=== PATIENT | female | born 1980 | race Hispanic/Latino ===

== ENCOUNTER 2017-03-30 13:24 | Emergency (ER) | payer OTHER ==
[2017-03-30 13:38] VITALS: BP 132/74; PULSE 88; RESP 20; TEMP 98.6; O2SAT 98
--- NOTE | 2017-03-30 13:43 | ED PDOC ---
Lower Extremity Pain/Injury Time Seen by Provider: 03/30/17 13:38 Chief Complaint (Nursing): Lower Extremity Problem/Injury Chief Complaint (Provider): left foot pain History Per: Patient History/Exam Limitations: no limitations Onset/Duration Of Symptoms: Days (injury- 4 day ago) - Ankle/Foot Description Of Injury: Struck Against Object (edge of bed) Currently Unable To: Bear Weight Alleviating Factor(s): Ice Therapy, OTC Pain Medication Feet: 1 - bruising, pain swelling. - Risk Factors DVT Risk Factors: Pos: None Past Medical History Reviewed: Historical Data, Nursing Documentation, Vital Signs Vital Signs: Last Vital Signs Temp 98.6 F 03/30/17 13:33 Pulse 88 03/30/17 13:33 Resp 20 03/30/17 13:33 BP 132/74 03/30/17 13:33 Pulse Ox 98 03/30/17 13:33 - Medical History PMH: No Chronic Diseases - Family History Family History: States: No Known Family Hx - Home Medications Home Medications: Ambulatory Orders Medication Instructions Recorded Cephalexin [cephalexin] 500 mg PO BID #20 cap 03/30/17 Clindamycin [Cleocin] 300 mg PO TID #30 cap 03/30/17 Desoximetasone 0.25% [Topicort 0.25 gm TP DAILY #1 tube 03/30/17 0.25%] - Allergies Allergies/Adverse Reactions: Allergies Allergy/AdvReac Type Severity Reaction Status Date / Time No Known Allergies Allergy Verified 03/30/17 13:32 Wells Criteria for PE - Wells Criteria for Pulmonary Embolism Clinical Signs and Symptoms of DVT: No P.E is #1 Diagnosis, or Equally Likely: No Heart Rate >100: No Immobilization at least 3 days;Surgery previous 4 weeks: No Previous, objectively diagnosed PE or DVT: No Hemoptysis: No Malignancy w/treatment within 6 months, or palliative: No Total Score: 0 Review of Systems ROS Statement: Except As Marked, All Systems Reviewed And Found Negative Musculoskeletal: Positive for: Foot Pain Physical Exam - Reviewed Nursing Documentation Reviewed: Yes Vital Signs Reviewed: Yes - Physical Exam Appears: Positive for: Non-toxic, No Acute Distress Skin: Positive for: Normal Color, Warm, DRY Cardiovascular/Chest: Positive for: Regular Rate, Rhythm Respiratory: Positive for: CNT, Normal Breath Sounds Extremity: Positive for: Other (left foot: 3-5th brusing to MTP to dorsum of foot , swelling tendneress. good pulses FROM of foot limited ROM of toes. ) Neurologic/Psych: Positive for: Alert, Oriented - ECG O2 Sat by Pulse Oximetry: 98 - Progress ED Course And Treament: motrin taken at home 1.5 hrs [facility]NA[employer] [facility]. xray for foot r/o fx Medical Decision Making Medical Decision Making: Pt showed MLP image of foot 2d ago-noted are papular lesions resembling bites with less redness and swelling. pt now admits she thought she was bite by something and from there also noted swelling and redness, warmth to foot getting increasingly worse. Pt most likely with cellulites to foot-pt opts to not have blood work at this time. pt is clinically well appearing stable VS. pt will get d/c on cleocin and keflex with f.u wtih pmdi 3d. pt will have podiatry eval. and will have podiatry eval.in 1 week. Disposition - Clinical Impression Clinical Impression: Cellulitis - Patient ED Disposition Is Patient to be Admitted: No Counseled Patient/Family Regarding: Studies Performed, Diagnosis, Need For Followup, Rx Given - Disposition Referrals: Nabor Morales DPM [Staff Provider] - Disposition: Routine/Home Disposition Time: 16:04 Condition: FAIR Prescriptions: Cephalexin [cephalexin] 500 mg PO BID #20 cap Clindamycin [Cleocin] 300 mg PO TID #30 cap Desoximetasone 0.25% [Topicort 0.25%] 0.25 gm TP DAILY #1 tube Instructions: Cellulitis (DC)
--- NOTE | 2017-03-30 14:24 | RAD ---
PROCEDURE: Left Foot Radiographs. HISTORY: foot pain COMPARISON: None available. FINDINGS: BONES: No acute displaced fracture. JOINTS: No dislocation. SOFT TISSUES: Soft tissue swelling. No evidence of radiopaque foreign body. OTHER FINDINGS: None. IMPRESSION: Soft tissue swelling. No acute displaced fracture, dislocation, or significant joint effusion identified. If symptoms persist, or if there is continued clinical concern, x-ray follow-up in 7-10 days should be considered.
--- NOTE | 2017-03-30 17:49 | CP.PCM.CON ---
History of Present Illness - History of Present Illness History of Present Illness: 36 year old female patient seen at bedside in the ED complaining of pain and swelling on the top of her left foot. Patient states that [place] which caused her pain. Patient also states she got bitten by a bug which may have started the pain as well. Patient states the day after the incident the top of her foot was red, bumpy, and painful. Patient states that she has been icing her foot to alleviate the pain. Patient denies N/V/F/D/C/SOB. No other pedal complaints at this time. PMH: none PSH: none FH: noncontributory SH: occasional ETOH Meds: OTC multivitamin All: NKDA Review of Systems - Review of Systems All systems: reviewed and no additional remarkable complaints except (as per HPI ) Past Patient History - Past Social History Smoking Status: Never Smoked - PSYCHIATRIC Hx Substance Use: No - SURGICAL HISTORY Hx Surgeries: No - ANESTHESIA Hx Anesthesia: No Meds Home Medications: Home Medication List Medication Instructions Recorded Confirmed Type Cephalexin [cephalexin] 500 mg PO BID #20 cap 03/30/17 Rx Clindamycin [Cleocin] 300 mg PO TID #30 cap 03/30/17 Rx Desoximetasone 0.25% [Topicort 0.25 gm TP DAILY #1 tube 03/30/17 Rx 0.25%] Allergies/Adverse Reactions: Allergies Allergy/AdvReac Type Severity Reaction Status Date / Time No Known Allergies Allergy Verified 03/30/17 13:32 Physical Exam - Constitutional Appears: Well, Non-toxic, No Acute Distress - Extremities Exam Additional comments: Vasc: DP and PT pulses palpable 2/4 b/l. CFT <3 seconds to all digits x10. TG warm to warm. Mild increase in warmth to L 3rd-5th MPJs and 3rd-5th digits. Edema noted to L forefoot. Neuro: Gross sensation intact b/l. Derm: Red-purple discoloration extending from the left 3rd-5th metatarsals to the 4th and 5th digitis. No fluctuance noted. No open lesions noted. Ortho: Pain on palpation noted to L dorsolateral forefoot. Decreased ROM to L 3rd-5th MPJs due to chief complaint. - Neurological Exam Neurological exam: Alert, Oriented x3 - Psychiatric Exam Psychiatric exam: Normal Affect, Normal Mood Results - Vital Signs Recent Vital Signs: Last Vital Signs Temp 98.6 F 03/30/17 13:33 Pulse 88 03/30/17 13:33 Resp 20 03/30/17 13:33 BP 132/74 03/30/17 13:33 Pulse Ox 98 03/30/17 16:04 Assessment & Plan - Assessment and Plan (Free Text) Assessment: 36 year old female with cellulitis secondary to bug bite Plan: Patient seen and evaluated at bedside. Discussed with attending, Dr. Ramos. Chart and vitals reviewed = afebrile. L foot XR reviewed: ST swelling Recommend RICE therapy. Recommend Keflex and Clinda PO for discharge. Stable from podiatry standpoint. Patient is to follow up at Dr. Ramos's office in 1 week. Thank you for this consult, please reconsult podiatry again as needed. - Date & Time Date: 03/30/17 Time: 14:00
== END 2017-03-30 16:23 | disposition home or self-care (01) ==
LOC: H.ER 13:24
DX: L03.90 Cellulitis, unspecified (principal)